=== PATIENT | female | born 1995 | race Caucasian/White ===

== ENCOUNTER → 2016-08-11 | Outpatient (CLI) | payer OTHER ==
--- NOTE | 2016-08-11 18:05 | REP ---
LUMBAR SPINE, FIVE VIEWS: HISTORY: Back pain. There is no acute fracture or subluxation. The intervertebral discs are normal in height. The facet joints are normal in appearance. IMPRESSION: There is no acute fracture or subluxation. Signed by Manuel Jimenes MD 08/12/2016 08:17 A
== END ==
LOC: M LRY 16:21
PROVIDERS: ATTEND Physician Assistant Medical
DX: M54.5 Low back pain (principal)

== ENCOUNTER → 2017-02-07 | Outpatient (CLI) | payer OTHER ==
--- NOTE | 2017-02-07 10:52 | REP ---
LEFT KNEE SERIES: Seven views. HISTORY: Pain in the left knee. FINDINGS: Multiple views of the left knee demonstrate normal bones, joints, and soft tissues. No fracture or subluxation is seen. No evidence of joint effusion. IMPRESSION: Negative views of the left knee. Signed by Octavio Lange MD 02/07/2017 10:57 A
== END ==
LOC: M LRY 09:36
PROVIDERS: ATTEND Physician Assistant Medical
DX: M25.562 Pain in left knee (principal)